=== PATIENT | male | born 1990 | race Caucasian/White ===

== ENCOUNTER 2017-08-31 16:50 | Emergency (ER) | payer OTHER ==
[2017-08-31 16:57] VITALS: TEMP 98.1
--- NOTE | 2017-08-31 17:52 | EDPHY ---
H & P Time Seen by Provider: 08/31/17 17:11 HPI/ROS: CHIEF COMPLAINT: Back pain HISTORY OF PRESENT ILLNESS: Patient is a 27-year-old male who presents to the emergency department reporting a possible herniated disc. He has left lower back pain radiating to his left leg for months but has been worse over the past 3 days. He went saw chiropractor yesterday with no relief. He also tried a THC patch with no relief. The patient denies any incontinence of urine or stool. He has no weakness or numbness. No fevers or chills. Patient denies any recent trauma. No recent injury. REVIEW OF SYSTEMS: My complete review of systems is negative except as mentioned in the HPI. Past Medical/Surgical History: Includes back pain Past surgical history: Negative Social history: The patient does not smoke Smoking Status: Never smoked Physical Exam: Vitals noted. GENERAL: Well-appearing, in no acute distress, alert. HEENT: Eyes normal to inspection, normal. NECK: [Supple, normal. RESPIRATORY: Clear to auscultation bilaterally, no rales, rhonchi or wheezing. CVS: Regular rate and rhythm, no rubs, murmurs, or gallops. ABDOMEN: Soft, nontender, nondistended, no organomegaly. No palpable mass. BACK: Normal to inspection, no CVA tenderness. Patient has mild left lower back point tenderness to palpation. There is no SI joint tenderness palpation. Patient has positive leg raise on the left. SKIN: Normal color, no rash, warm, dry. No pallor. EXTREMITIES: No pedal edema, no calf tenderness, no Homans sign or cords, no joint swelling. NEURO/PSYCH: Alert and oriented, normal mood and affect, normal motor sensory exam. No obvious cranial nerve deficit. Constitutional: Initial Vital Signs Temperature (C) 36.7 C 08/31/17 16:54 Heart Rate 73 08/31/17 16:54 Respiratory Rate 16 08/31/17 16:54 Blood Pressure 122/76 H 08/31/17 16:54 O2 Sat (%) 97 08/31/17 16:54 O2 Delivery Mode Room Air Allergies/Adverse Reactions: Sulfa (Sulfonamide Antibiotics) Allergy (Mild, Verified 03/12/14 15:30) Rash Home Medications: Medication Instructions Recorded Diazepam [Valium] 5 mg PO Q6 #21 tab 08/31/17 Flexeril 08/31/17 Hydrocodone/APAP 5/325 [Reading 1 - 2 tab PO Q4 #21 tab 08/31/17 5/325 (RX)] predniSONE 20 mg PO DAILY 4 Days tab 08/31/17 Medical Decision Making ED Course/Re-evaluation: In the emergency department I discussed possible etiologies with the patient. I answered all his questions. Patient requested an MRI in the emergency department. Patient had no focal neurologic deficits on exam. No signs of cauda equina syndrome. I do not feel he needs an MRI at this time. I explained this in depth with the patient. Patient will be treated with prednisone, Reading and Valium. He was given follow-up information with Neurosurgery. He was given warning signs prior to leaving. He will return with worsening symptoms. Differential Diagnosis: My differential includes but is not limited to back strain, disc herniation, cauda equina syndrome, hematoma, mass Departure - Departure Disposition: Home, Routine, Self-Care Clinical Impression: Low back pain Qualifiers: Chronicity: acute Back pain laterality: left Sciatica presence: with sciatica Sciatica laterality: sciatica of left side Qualified Code(s): M54.42 - Lumbago with sciatica, left side Condition: Good Instructions: Sciatica (ED), Acute Low Back Pain (ED) Additional Instructions: Return with increasing pain, weakness, numbness, fever, incontinence of urine or stool or any other concerns. Your were given medications that are sedating in the emergency department. You should go home and lay down. Referrals: Charles Pereira MD [Medical Doctor] - 5-7 days, call for appt. Prescriptions: Diazepam [Valium] 5 mg PO Q6 #21 tab Hydrocodone/APAP 5/325 [Reading 5/325 (RX)] 1 - 2 tab PO Q4 #21 tab predniSONE 20 mg PO DAILY 4 Days tab
[2017-08-31] MEDS ORDERED: HYDROCODONE/APAP 5/325 TAB PO ONE (17:54)
[2017-08-31] MEDS ORDERED: predniSONE 20 MG TAB PO ONE (17:54)
[2017-08-31] MEDS ORDERED: DIAZEPAM 5 MG TAB PO ONE (17:54)
[2017-08-31] MEDS ORDERED: HYDROCOD/APAP 5/325 PREPACK#6 BTL TAKEHOME ONE ×2 (18:06→18:09)
[2017-08-31 18:25] VITALS: BP 118/75; PULSE 93; RESP 14; O2SAT 96
== END 2017-08-31 18:24 | disposition home or self-care (01) ==
DX: M54.42 Lumbago with sciatica, left side (principal)
CPT/HCPCS: J7512